=== PATIENT | male | born 1995 | race Caucasian/White ===

== ENCOUNTER 2020-08-27 10:29 | Outpatient (CLI) | payer OTHER ==
[~2020-08-27 10:29] MED LIST: iohexol 300mg/ml 100ml inj. ONE
== END 2020-08-27 23:59 | disposition home or self-care (01) ==
LOC: 64 CT 10:29
PROVIDERS: ATTEND Nurse Practitioner Family
DX: K57.30 Diverticulosis of large intestine without perforation or abscess without bleeding (principal)
CPT/HCPCS: 74177; Q9967

== ENCOUNTER 2023-04-05 12:28 | Outpatient (CLI) | payer OTHER | END 2023-04-05 23:59 | disposition home or self-care (01) | LOC: RAD 12:28 | PROVIDERS: ATTEND Family Medicine | DX: N28.1 Cyst of kidney, acquired (principal); R10.9 Unspecified abdominal pain; R10.11 Right upper quadrant pain; Z87.442 Personal history of urinary calculi | CPT/HCPCS: 76700 ==